=== PATIENT | female | born 1985 | race Caucasian/White ===

== ENCOUNTER 2020-08-23 11:25 | Emergency (ER) | payer BC ==
[~2020-08-23] VITALS: Ht 165.1 cm; Wt 59.0 kg
--- NOTE | 2020-08-23 11:35 | NUR ---
pt came to ER stated she had left sided chest pain with diaphoresis and SOB, non radiating 30 mins ago. no chest pain at this time. no sob. no diaphoresis. awaiting for MD johnston.
--- NOTE | 2020-08-23 11:37 | NUR ---
seen and evaluated by
[2020-08-23] MEDS ORDERED: LIDOCAINE VISCOUS 2% UD 15 ML UDC ONE (11:45)
[2020-08-23] MEDS ORDERED: MAG HYDROX/AL HYDROX/SIMETH 30 ML UDC ONE (11:45)
[2020-08-23] MEDS ORDERED: LIDOCAINE VISCOUS 2% UD 15 ML UDC MM ONE (12:00)
[2020-08-23] MEDS ORDERED: MAG HYDROX/AL HYDROX/SIMETH 30 ML UDC PO ONE (12:00)
[2020-08-23 12:27] VITALS: BP 122/65
--- NOTE | 2020-08-23 12:29 | NUR ---
Patient discharged to home in stable condition. Written and verbal after care instructions given. Patient verbalizes understanding of instruction.
== END 2020-08-23 12:29 | disposition home or self-care (01) ==
LOC: ER 11:25
DX: R07.89 Other chest pain (principal); R06.02 Shortness of breath
CPT/HCPCS: 71045-TC